=== PATIENT | female | born 1970 ===

== ENCOUNTER 2021-08-20 18:40 | Observation (INO) ==
[2021-08-20 21:46] LABS: Basophils # 0.1 K/mcL (0.0-0.2); Basophils % 0.5 %; Eosinophils # 0.1 K/mcL (0.0-0.6); Eosinophils % 0.5 %; Hematocrit 30.9 % (35.3-44.9); Hemoglobin 8.9 g/dL (11.5-15.4); Immature Granulocytes % 0.4 % (0-4); Lymphocytes # 2.8 K/mcL (0.6-4.6); Lymphocytes % 25.2 %; Mean Corpuscular HGB Conc 28.8 g/dL (31.6-35.5); Mean Corpuscular Hemoglobin 19.2 pg (28.0-33.3); Mean Corpuscular Volume 66.7 fL (83.0-100.0); Mean Platelet Volume 10.1 fL (9.4-12.4); Monocytes # 0.7 K/mcL (0.0-1.3); Monocytes % 6.5 %; Neutrophils # 7.4 K/mcL (1.6-8.9); Platelet Count 483 K/mcL (140-400); Red Blood Count 4.63 M/mcL (3.82-4.97); Red Cell Distribution Width 17.2 % (11.5-14.5); Segmented Neutrophils % 66.9 %
[2021-08-20 21:52] LABS: INR 1.1; Prothrombin Time 12.4 Seconds (9.4-12.1)
[2021-08-20 21:54] LABS: Activated Partial Thrombo Time 21.3 Seconds (26.0-36.0)
[2021-08-20 22:00] LABS: Anisocytosis 1+ (Not Present); Hypochromasia Present (Not Present); Microcytosis Present (Not Present); Ovalocytes 1+ (Not Present); Poikilocytosis 1+ (Not Present)
[2021-08-20 22:01] LABS: Platelet Estimate Increased (Normal)
[2021-08-20] MEDS ORDERED: Isovue-370 500 ML BOTTLE IVP ONE (22:04)
[2021-08-20 22:05] LABS: BUN/Creatinine Ratio 13 (6-26); Blood Urea Nitrogen 10 mg/dL (6-20); Calcium 9.5 mg/dL (8.6-10.3); Carbon Dioxide 21 mEq/L (23-29); Chloride 108 mEq/L (98-107); Glucose 101 mg/dL (70-105); Osmolality,Calculated 289 (280-300); Potassium 3.9 mEq/L (3.5-5.1); Sodium 140 mEq/L (136-145); eGFR For African Americans > 60 (> 60); eGFR For Non-African Americans > 60 (> 60)
[2021-08-20 22:13] LABS: Troponin I < 0.03 ng/mL (< 0.04)
[2021-08-21] MEDS ORDERED: Ondansetron 4 MG/2 ML VIAL IVP PRN (01:49)
[2021-08-21] MEDS ORDERED: Acetaminophen 325 MG TABLET PO PRN (01:49)
[2021-08-21] MEDS ORDERED: Naloxone 0.4 MG/ML INJ IVP PRN (01:49)
[2021-08-21] MEDS ORDERED: Melatonin 3 MG TABLET PO PRN (01:49)
[2021-08-21] MEDS ORDERED: *HR* Ticagrelor 90 MG TABLET PO ONE (01:56)
[2021-08-21 02:33] LABS: Influenza A PCR Negative (Negative); Influenza B PCR Negative (Negative); Resp. Syncytial Virus PCR Negative (Negative); SARS-CoV-2 by PCR (In House) Negative (Negative)
[2021-08-21 03:03] LABS: Red Cell Distribution Width 17.4 % (11.5-14.5)
[2021-08-21] MEDS ORDERED: Perflutren Lipid Microsphere 1.3 ML in 0.9 % Sodium Chloride 8.7 ML IVP PRN (03:03)
[2021-08-21 03:04] LABS: Hematocrit 30.7 % (35.3-44.9); Hemoglobin 8.5 g/dL (11.5-15.4); Mean Corpuscular HGB Conc 27.7 g/dL (31.6-35.5); Mean Corpuscular Hemoglobin 18.5 pg (28.0-33.3); Mean Corpuscular Volume 66.7 fL (83.0-100.0); Mean Platelet Volume 9.7 fL (9.4-12.4); Platelet Count 473 K/mcL (140-400); White Blood Count 9.8 K/mcL (4.3-11.1)
[2021-08-21 03:13] LABS: INR 1.1; Prothrombin Time 12.4 Seconds (9.4-12.1)
[2021-08-21 03:15] LABS: Activated Partial Thrombo Time 27.2 Seconds (26.0-36.0)
[2021-08-21] MEDS ORDERED: Ipratropium/Albuterol Neb 3 ML IH PRN (03:23)
[2021-08-21 03:26] LABS: Iron 13 mcg/dL (50-170)
[2021-08-21 03:29] LABS: Alanine Aminotransferase 9 Units/L (7-52); Albumin 4.1 g/dL (3.5-5.7); Albumin/Globulin Ratio 1.4 (1.1-2.2); Alkaline Phosphatase 114 Units/L (34-104); Aspartate Amino Transferase 8 Units/L (13-39); BUN/Creatinine Ratio 10 (6-26); Bilirubin,Total 0.4 mg/dL (0.3-1.0); Blood Urea Nitrogen 8 mg/dL (6-20); Carbon Dioxide 21 mEq/L (23-29); Chloride 109 mEq/L (98-107); Cholesterol 83 mg/dL (< 200); Globulin 2.9 g/dL (2.4-3.5); Glucose 160 mg/dL (70-105); HDL Cholesterol 42 mg/dL (40-59); Osmolality,Calculated 288 (280-300); Phosphorous 2.6 mg/dL (2.7-4.5); Potassium 3.8 mEq/L (3.5-5.1); Sodium 138 mEq/L (136-145); Triglycerides 231 mg/dL (< 150); Troponin I < 0.03 ng/mL (< 0.04); eGFR For African Americans > 60 (> 60); eGFR For Non-African Americans > 60 (> 60)
[2021-08-21 03:39] LABS: Thyroid Stimulating Hormone 1.571 mcIU/mL (0.340-5.600)
[2021-08-21 03:49] LABS: Folate 12.8 ng/mL (3.0-16.0)
[2021-08-21] MEDS: *HR* Enoxaparin 40 MG/0.4 ML SYRINGE SQ SCH (06:21)
[2021-08-21 08:44] LABS: Amphetamine Screen,Urine Negative ng/mL (Cutoff=1000); Barbiturate Screen,Urine Negative ng/mL (Cutoff=200); Benzodiazepines Screen,Urine Negative ng/mL (Cutoff=200); Cannabinoid Screen,Urine Negative ng/mL (Cutoff = 50); Cocaine Screen,Urine Negative ng/mL (Cutoff= 300); Opiate Screen,Urine Negative ng/mL (Cutoff=300); Phencyclidine Screen,Urine Negative ng/mL (Cutoff=25)
[2021-08-21] MEDS: Aspirin 81 MG TAB.CHEW PO SCH (10:36)
[2021-08-21] MEDS: *HR* Ticagrelor 90 MG TABLET PO SCH ×2 (10:36→20:53)
[2021-08-21 11:34] LABS: Estimated Average Glucose 128 mg/dl; Hemoglobin A1C 6.1 %
[2021-08-21] MEDS ORDERED: Metoprolol XL (24 HR) Succ 25 MG TAB.ER.24H PO SCH (20:00)
[2021-08-22 03:01] LABS: Basophils % 0.6 %
[2021-08-22 03:03] LABS: Basophils # 0.1 K/mcL (0.0-0.2); Eosinophils # 0.2 K/mcL (0.0-0.6); Eosinophils % 1.4 %; Hematocrit 33.1 % (35.3-44.9); Hemoglobin 8.9 g/dL (11.5-15.4); Immature Granulocytes % 0.4 % (0-4); Lymphocytes # 3.4 K/mcL (0.6-4.6); Mean Corpuscular HGB Conc 26.9 g/dL (31.6-35.5); Mean Corpuscular Hemoglobin 18.1 pg (28.0-33.3); Mean Corpuscular Volume 67.1 fL (83.0-100.0); Mean Platelet Volume 9.7 fL (9.4-12.4); Monocytes % 6.6 %; Neutrophils # 6.9 K/mcL (1.6-8.9); Platelet Count 462 K/mcL (140-400); Red Blood Count 4.93 M/mcL (3.82-4.97); Red Cell Distribution Width 17.4 % (11.5-14.5); White Blood Count 11.3 K/mcL (4.3-11.1)
[2021-08-22 03:06] LABS: INR 1.1; Prothrombin Time 12.4 Seconds (9.4-12.1)
[2021-08-22 03:19] VITALS: O2SAT 97
[2021-08-22 03:19] LABS: BUN/Creatinine Ratio 15 (6-26); Blood Urea Nitrogen 11 mg/dL (6-20); Calcium 9.4 mg/dL (8.6-10.3); Carbon Dioxide 20 mEq/L (23-29); Chloride 112 mEq/L (98-107); Glucose 99 mg/dL (70-105); Osmolality,Calculated 283 (280-300); Sodium 137 mEq/L (136-145); eGFR For African Americans > 60 (> 60); eGFR For Non-African Americans > 60 (> 60)
[2021-08-22 03:24] LABS: Monocytes # 0.8 K/mcL (0.0-1.3)
[2021-08-22 04:14] LABS: Acanthocytes 1+ (Not Present); Hypochromasia Present (Not Present); Microcytosis Present (Not Present); Platelet Estimate Increased (Normal)
[2021-08-22] MEDS ORDERED: Regadenoson 0.4 MG/5 ML SYRINGE IVP ONE (06:01)
[2021-08-22] MEDS: Regadenoson 0.4 MG/5 ML SYRINGE IVP ONE ×2 (06:02→08:01)
[2021-08-22] MEDS: *HR* Enoxaparin 40 MG/0.4 ML SYRINGE SQ SCH (06:45)
[2021-08-22] MEDS: Aspirin 81 MG TAB.CHEW PO SCH (10:34)
[2021-08-22] MEDS: *HR* Ticagrelor 90 MG TABLET PO SCH (10:34)
[2021-08-22 11:39] VITALS: BP 109/70; PULSE 88; TEMP 97.6
[2021-08-22 21:50] LABS: Ferritin < 8 ng/mL (10-120)
[2021-08-23 12:19] LABS: % Iron Saturation 3 % (15-50); Transferrin 363 mg/dL (200-400)
== END 2021-08-22 15:22 | disposition home or self-care (01) ==
LOC: 3ANU 18:40 → EMEROOARM 18:40 → SUATTDRO 08-21 01:57 → 3ANU 08-21 02:32
PROVIDERS: ADMIT Internal Medicine; ATTEND Internal Medicine